=== PATIENT | female | born 1955 | race Caucasian/White ===

== ENCOUNTER 2019-10-06 16:45 | Inpatient (IN) ==
--- OUTSIDE RECORDS SUMMARY | 2019-10-06 16:47 | External Medical Summary | Continuity of Care Document ---
:1955 Author Name Oneil Castillo, Provider Address Unavailable Unavailable , Care Team Providers Name Role Phone Unavailable Unavailable Unavailable SALOMON JOHNSON Unavailable Unavailable Unavailable Unavailable Unavailable Problems Interstitial lung disease (515) (J84.9) Abnormal CT lung screening (793.19) (R91.8) Multiple pulmonary nodules (793.19) (R91.8) Kidney lesion (593.9) (N28.9) Allergies and Adverse Reactions Bactrim TABS (Allergy) Chantix TABS (Allergy) hydrochlorothiazide (Allergy) Percocet TABS (Allergy) Bee sting (Allergy) Medications amLODIPine Besylate 5 MG Oral Tablet; TAKE 1 TABLET DAILY. , M.D. Refills: 0 Ascorbic Acid 500 MG Oral Tablet; TAKE 1 TABLET DAILY. , M.D . Refills: 0 Atorvastatin Calcium 40 MG Oral Tablet; TAKE 1 TABLET AT BED TIME. , M.D. Refills: 0 buPROPion HCl ER (XL) 150 MG Oral Tablet Extended Release 24 Hour; TAKE 1 TABLET DAILY. , M.D. Refills: 0 Vitamin D3 50 MCG (2000 UT) Oral Tablet; Take 1 tablet daily , M.D. Refills: 0 Plavix 75 MG Oral Tablet; TAKE 1 TABLET DAILY. , M.D. Refills: 0 EpiPen 2-Vinnie 0.3 MG/0.3ML CLARE , M.D. Refills: 0 Hydroxychloroquine Sulfate 200 MG Oral Tablet; TAKE 1 TABLET DAILY. , M.D. Refills: 0 Lisinopril 20 MG Oral Tablet; TAKE 1 TABLET DAILY. , M.D. Refills: 0 Gaviscon CHEW , M.D. Refills: 0 Meloxicam 15 MG Oral Tablet; TAKE 1 TABLET DAILY. , M.D. Refills: 0 Metoprolol Succinate ER 25 MG Oral Table t Extended Release 24 Hour; Take 1 tablet twice daily , M.D. Refills: 0 Pantoprazole Sodium 40 MG Oral Tablet Delayed Release; TAKE 1 TABLET DAILY. , M.D. Refills: 0 traMADol HCl ER 100 MG Oral Tablet Exten ded Release 24 Hour; TAKE 1 TABLET DAILY. , M.D. Refills: 0 Zolpidem Tartrate ER 12.5 MG Oral Tablet Extended Release; TAKE 1 TABLET AT BEDTIME. , M.D. Refills: 0 Procedures Procedures not documented Immunizations Immunizations not documented Social History - Smoking Status Smokes tobacco daily Plan of Treatment Planned Observations Planned Goals not documented Results No Known Results Results not documented
--- OUTSIDE RECORDS SUMMARY | 2019-10-06 16:47 | External Medical Summary | Continuity of Care Document ---
[...] Percocet TABS (Allergy) Bee sting (Allergy) Medications Ascorbic Acid 500 MG Oral Tablet; TAKE [...] 0 Gaviscon CHEW , M.D. Refills: 0 amLODIPine Besylate 5 MG Oral Tablet; TAKE 1 TABLET DAILY. , M.D. Refills: 0 Zolpidem Tartrate ER 12.5 MG Oral Tablet Extended Release; TAKE 1 TABLET AT BEDTIME. , M.D. Refills: 0 traMADol HCl ER 100 MG Oral Tablet Exten ded Release 24 Hour; TAKE 1 TABLET DAILY. , M.D. Refills: 0 Pantoprazole Sodium 40 MG Oral Tablet Delayed Release; TAKE 1 TABLET DAILY. , M.D. Refills: 0 Metoprolol Succinate ER 25 MG Oral Table t Extended Release 24 Hour; Take 1 tablet twice daily , M.D. Refills: 0 Meloxicam 15 MG Oral Tablet; TAKE 1 TABLET DAILY. , M.D. Refills: 0 Procedures Procedures not documented Immunizations Immunizations not documented Social History - Smoking Status Smokes tobacco daily Plan of Treatment Planned Observations Planned Goals not documented Results No Known Results Results not documented
[2019-10-06 17:32] LABS: Basophils # (auto) 0.01 K/uL (0-0.2); Basophils % (auto) 0.1 %; Hematocrit (blood only) 39.6 % (37-47); Hemoglobin 13.3 g/dL (12.0-16.0); Immature Granulocytes # (auto) 0.01 K/uL (0.00-0.02); Immature Granulocytes % (auto) 0.1 %; Lymphocytes # (auto) 3.55 K/uL (1.2-3.4); Lymphocytes % (auto) 38.6 %; Mean Corpuscular Hemoglobin 28.9 pg (25-34); Mean Corpuscular Hgb Conc 33.6 g/dL (32-36); Mean Corpuscular Volume 85.9 fL (80-100); Mean Platelet Volume 11.4 fL (7.4-10.4); Monocytes # (auto) 0.87 K/uL (0.11-0.59); Monocytes % (auto) 9.5 %; Neutrophils # (auto) 4.76 K/uL (1.4-6.5); Neutrophils % (auto) 51.7 %; Platelet Count 266 K/uL (130-400); RDW Coefficient of Variation 13.3 % (11.5-14.5); Red Blood Count 4.61 M/uL (4.2-5.4)
--- NOTE | 2019-10-06 17:36 | Emergency Department Note ---
History of Present Illness General Chief complaint: Referred by Doctor Stated complaint: AFIB Time Seen by Provider: 10/06/19 17:07 Source: patient and family (Spouse who is at the bedside) Mode of arrival: ambulatory Limitations: no limitations History of Present Illness Maximum Pain Intensity: 7 This patient comes in after sent over from the senior data scientist after having significant pauses up to 10 seconds on an outpatient ZIO outpatient monitor. She is on Eliquis which they plan on holding tonight so they can do a pacemaker tomorrow. She is asymptomatic active at present with exception of mild headache which she thinks is from stress. She has no chest pain or shortness of breath lightheadedness or dizziness at present. She has some chronic lower extremity edema for the last 6 months. She had no known exposure to covert and specifically denies fever chills cough or flulike symptoms or achiness. Home Medications Home Medications Medication Instructions Recorded Confirmed Type amlodipine 10 mg PO QPM 10/06/19 10/06/19 History apixaban [Eliquis] 5 mg PO BID 10/06/19 10/06/19 History ascorbic acid (vitamin C) [Vitamin 500 mg PO BID 10/06/19 10/06/19 History C] atorvastatin 40 mg PO HS 10/06/19 10/06/19 History bupropion HCl 150 mg PO BID 10/06/19 10/06/19 History buspirone 10 mg PO BID 10/06/19 10/06/19 History cholecalciferol (vitamin D3) 50 mcg PO QPM 10/06/19 10/06/19 History [Vitamin D3] clopidogrel 75 mg PO DAILY 10/06/19 10/06/19 History famotidine 40 mg PO HS 10/06/19 10/06/19 History furosemide 60 mg PO Q OTHER DAY 10/06/19 10/06/19 History gabapentin 600 mg PO HS 10/06/19 10/06/19 History hydroxychloroquine 200 mg PO BID 10/06/19 10/06/19 History lisinopril 10 mg PO DAILY 10/06/19 10/06/19 History magnesium oxide 400 mg PO DAILY 10/06/19 10/06/19 History metoprolol tartrate 25 mg PO BID 10/06/19 10/06/19 History pantoprazole 40 mg PO DAILY 10/06/19 10/06/19 History Allergies Allergy/AdvReac Type Severity Reaction Status Date / Time bee venom protein (honey bee) Allergy Severe Verified 10/06/19 18:08 acetaminophen [From Percocet] Allergy Intermediate hives Verified 10/06/19 18:08 oxycodone [From Percocet] Allergy Intermediate hives Verified 10/06/19 18:08 sulfamethoxazole Allergy Intermediate Hives Verified 10/06/19 18:08 [From Bactrim] trimethoprim [From Bactrim] Allergy Intermediate Hives Verified 10/06/19 18:08 varenicline [From Chantix] Allergy Intermediate Hives Verified 10/06/19 18:08 Past Med/Surg History Medical History (Updated 10/06/19 @ 20:30 by Sarabjit Taylor MD) GERD (gastroesophageal reflux disease) HLD (hyperlipidemia) HTN (hypertension) Peripheral vascular disease Rheumatoid arthritis Tachy-bandar syndrome (Acute) Surgical History (Updated 10/06/19 @ 19:27 by Shirin Keen PA-C) History of amputation of toe R 5th toe History of angioplasty of peripheral vessel bilateral iliac stent revascularization 2009 History of appendectomy History of cholecystectomy History of hysterectomy History of left heart catheterization Nonobstructive coronary disease by cardiac catheterization 2006, 2015 History of lumpectomy of left breast History of repair of rotator cuff History of total right knee replacement (TKR) Family History Sister Breast cancer Social History (Updated 10/06/19 @ 19:28 by Shirin Keen PA-C) Preferred Language: Uzbek Communication Ability: Effective Sales Technician Home Theater Required: No Beliefs That Will Affect Care: None marital status: Current Living Situation: Spouse and Family Other Information That Helps Us Care for You: No Feels Safe at Home: Yes Safety Concerns: Feels Safe At This Time Smoking Status: Former smoker Tobacco Type: cigarettes ; Years Smoked: 40 ; Tobacco Cessation Education Requested by Patient: No Hx Alcohol Use: Yes Alcohol type: beer Alcohol Intake Frequency: Holidays/Sp ecial Occasions Hx Substance Use: No Immunizations: Past medical history: A. fib on anticoagulation with Eliquis She has history of peripheral vascular disease with stenting She has renal insufficiency She tells me she has had a cardiac cath and has not had any cardiac lesions that she knows of Social history: She is and lives with her near [place]. She is followed by Dr. Romero Review of Systems A total of 10 systems reviewed and were otherwise negative Physical Exam Vital Signs Vital Signs - 24 hr 10/06/19 16:57 10/06/19 17:07 10/06/19 17:09 Temperature 36.7 C Temperature Source Oral Pulse Rate 89 84 104 H Pulse Rate from SpO2 Sensor 90 104 H Pulse Rhythm Respiratory Rate 20 20 17 Respiratory Effort / Characteristics Non-Labored Respiratory Depth Normal Blood Pressure 92/50 L 155/80 H Blood Pressure Mean 64 106 Pulse Oximetry 93 97 98 Oxygen Delivery Method Room Air Sepsis Recent Fever Within 48 Hours No Sepsis New/Unexplained Change in Mental Status No Sepsis Action Taken by Nursing No Action Required 10/06/19 17:15 10/06/19 17:30 10/06/19 17:45 Temperature Temperature Source Pulse Rate 93 H 115 H 118 H Pulse Rate from SpO2 Sensor Pulse Rhythm Irregular Respiratory Rate 14 22 21 Respiratory Effort / Characteristics Respiratory Depth Blood Pressure Blood Pressure Mean Pulse Oximetry Oxygen Delivery Method Room Air Sepsis Recent Fever Within 48 Hours Sepsis New/Unexplained Change in Mental Status Sepsis Action Taken by Nursing General: Well developed well nourished [id number] middle-age female who appears in no acute distress, breathing comfortably on room air. Normal speech HEENT: Normal cephalic atraumatic. Pupils are equal round and reactive to light. Extraocular movements are intact. Oropharynx is pink with moist mucous membranes. No swelling of the mouth lips or tongue. Neck: Supple with a midline trachea. No meningeal signs or stiffness, no JVD or bruits. No Stridor. Chest: Clear to auscultation bilaterally. No wheezes or rhonchi. No increased work of breathing. Heart: Irregularly irregular and rhythm without murmurs or gallops. A. fib seen on the monitor Abdomen: Soft nontender, nondistended without rebound guarding or rigidity. Extremities: No cyanosis clubbing or edema. No calf tenderness or assymetry Spine/Back. Non tender to palpation. No CVA tenderness Skin: Good turgor without rashes. Neurologic exam: Cranial nerves two through 12 are intact. Motor and sensation are intact and symmetrical throughout. Course Administered Medications Sodium Chloride (Nss 1000ml) 1,000 mls @ 80 mls/hr IV .[id number] [facility] Stop: 10/07/19 06:59 Last Admin: 10/06/19 18:40 Dose: 80 mls/hr Documented by: [id number] Medical Decision Making Differential Diagnosis Cardiac electrical problems, heart block, acute coronary syndrome, electrolyte or metabolic abnormality, infection, anemia Medical Records Attestation: I reviewed the patient's medical records. Home Medications Current Medication List: was personally reviewed by me Laboratory Data Attestation: I reviewed the patient's lab results. Result diagrams: 10/06/19 17:15 10/06/19 17:15 Lab Results 10/06/19 10/06/19 10/06/19 Range/Units 17:15 17:15 17:15 WBC 9.20 (4.8-10.8) K/uL RBC 4.61 (4.2-5.4) M/uL Hgb 13.3 (12.0-16.0) g/dL Hct 39.6 (37-47) % MCV 85.9 (80-100) fL MCH 28.9 (25-34) pg MCHC 33.6 (32-36) g/dL RDW Std Deviation 42.0 (36.4-46.3) fL RDW Coeff of Milli 13.3 (11.5-14.5) % Plt Count 266 (130-400) K/uL MPV 11.4 H (7.4-10.4) fL Immature Gran % (Auto) 0.1 % Neut % (Auto) 51.7 % Lymph % (Auto) 38.6 % [place] % (Auto) 9.5 % Eos % (Auto) 0.0 % Baso % (Auto) 0.1 % Neut # (Auto) 4.76 (1.4-6.5) K/uL Lymph # (Auto) 3.55 H (1.2-3.4) K/uL [place] # (Auto) 0.87 H (0.11-0.59) K/uL Eos # (Auto) 0.00 (0-0.5) K/uL Baso # (Auto) 0.01 (0-0.2) K/uL Immature Gran # (Auto) 0.01 (0.00-0.02) K/uL PT 11.5 (9.0-12.0) Seconds INR 1.1 (0.9-1.1) APTT 30.5 (21.0-31.0) Seconds PTT Ratio 1.1 Sodium 138 (136-145) mmol/L Potassium 4.2 (3.5-5.1) mmol/L Chloride 106 (98-107) mmol/L Carbon Dioxide 26 (21-32) mmol/L Anion Gap 6.0 (3-11) BUN 32 H (7-18) mg/dl Creatinine 2.30 H (0.6-1.2) mg/dl Est Cr Clr Drug Dosing 22.5 ml/min Est GFR ( Amer) 25.0 Est GFR (Non-Af Amer) 21.6 BUN/Creatinine Ratio 13.7 (10-20) Glucose 84 (70-99) mg/dl Calcium 9.0 (8.5-10.1) mg/dl Total Bilirubin 0.5 (0.2-1) mg/dl AST 16 (15-37) U/L ALT 23 (12-78) U/L Alkaline Phosphatase 145 H (45-117) U/L Troponin I < 0.015 (0-0.045) ng/ml Total Protein 7.8 (6.4-8.2) gm/dl Albumin 4.0 (3.4-5.0) gm/dl Globulin 3.8 (2.5-4.0) gm/dl Albumin/Globulin Ratio 1.0 (0.9-2) Lipase 132 (73-393) U/L Imaging Data Attestation: I personally reviewed and interpreted this imaging study as follows: My Impression: Chest x-ray: No acute infiltrate, failure, pneumothorax seen upon my interpretation Radiologist's Impression: XR chest 1V portable CLINICAL HISTORY: Atypical chest pain COMPARISON STUDY: CT scan performed 2016 FINDINGS: The heart is the upper limits of normal in size. There is no failure. There is no focal pulmonary consolidation. There are no pleural effusions.[Sligh t prominence of basilar markings likely relates to technical factors and atelectatic change. IMPRESSION: No active disease in the chest. ECG Data Attestation: I personally reviewed and interpreted this ECG as follows: Indication: + syncope and + weakness Rate (beats per minute): 108 Rhythm: + atrial flutter ECG Intervals/blocks: + Normal QRS ECG [place]: + Normal ECG ST segments: + Nonspecific ST abnormalities ECG Findings: + LVH Comparison ECG Date: no prior available Blood Pressure Blood Pressure Findings: Normal blood pressure Blood Pressure Disposition: did not require urgent referral MDM Narrative This patient comes in referred by her senior data scientist. She has been having pauses up to 10 seconds. She is stable at present this is been going on for quite some time. She was placed on a dry wall installations mechanic and B12. IV access established. Her EKG shows A. fib with slight increased heart rate. She had multiple blood testing obtained. Dr. Des Esquivel, the senior data scientist, will be taking care of her did see her in the ER. The patient does not appear to be in congestive heart failure. Troponin is normal. She has no significant electrolyte or metabolic abnormalities with exception of some renal insufficiency with a creatinine of 2.3. She has not think she has liver gallbladder pancreas disease. Given her sinus pauses and need for a pacemaker she will be admitted/observed. I have [facility] [place] her in the [place] for these measures. Continuous cardiac monitoring: An order was placed for a continuous cardiac monitoring due to her history of sinus pauses. My exam/interpretation, she was noted to be in A. fib with a rate of 89. Impression & Plan Tachy-bandar syndrome, Persistent atrial fibrillation, CKD (chronic kidney disease) stage 4, GFR 15-29 ml/min, Sinus pause, senior care (current) use of anticoagulants Discharge Plan Visit Data *Final* Discharge Date/Time: 10/06/19 19:17 Chief Complaint: Referred by Doctor Stated Complaint: AFIB ED Provider: Sarabjit Taylor Discharge Problem: Tachy-bandar syndrome, Persistent atrial fibrillation, CKD (chronic kidney disease) stage 4, GFR 15-29 ml/min, Sinus pause, terminologist (current) use of anticoagulants Patient Disposition: Admitted As Inpatient Discharge Instructions Interventions: ED Discharge Assessment Last Done: 10/06/19 19:17
--- NOTE | 2019-10-06 17:42 | XRay Report ---
XR chest 1V portable CLINICAL HISTORY: Atypical chest pain COMPARISON STUDY: CT scan performed 2016 FINDINGS: The heart is the upper limits of normal in size. There is no failure. There is no focal pul monary consolidation. There are no pleural effusions.[Slight prominence of basilar markings likely re lates to technical factors and atelectatic change. IMPRESSION: No active disease in the chest. ACT 112: Negative or not required by law. Electronically signed by: Gorge Blair M.D. 10/06/2019 5:41 PM
[2019-10-06 17:44] LABS: INR 1.1 (0.9-1.1); Partial Thromboplastin Ratio 1.1; Partial Thromboplastin Time 30.5 Seconds (21.0-31.0); Prothrombin Time 11.5 Seconds (9.0-12.0)
[2019-10-06 17:48] LABS: Alanine Aminotransferase 23 U/L (12-78); Aspartate Aminotransferase 16 U/L (15-37); BUN Creatinine Ratio 13.7 (10-20); Blood Urea Nitrogen 32 mg/dl (7-18); Carbon Dioxide 26 mmol/L (21-32); Chloride 106 mmol/L (98-107); Creatinine Clr Calc Pharmacy 22.5 ml/min; Est GFR (Non-African American) 21.6; Glucose 84 mg/dl (70-99); Lipase 132 U/L (73-393); Potassium 4.2 mmol/L (3.5-5.1); Sodium 138 mmol/L (136-145)
[2019-10-06 17:53] LABS: Alkaline Phosphatase 145 U/L (45-117); Bilirubin,Total 0.5 mg/dl (0.2-1); Globulin 3.8 gm/dl (2.5-4.0); Total Protein 7.8 gm/dl (6.4-8.2); Troponin I < 0.015 ng/ml (0-0.045)
--- NOTE | 2019-10-06 17:57 | Cardiology Consultation ---
Date of Consultation October 06, 2019 Assessment & Plan (1) Tachy-bandar syndrome: (2) Persistent atrial fibrillation: (3) HTN (hypertension): (4) Peripheral vascular disease: 63-year-old female with complex history as outlined above with recent symptoms of intermittent lightheadedness and dizziness. Event monitor demonstrated significant pauses with tachybradycardia syndrome superimposed on persistent atrial fibrillation. Patient is referred in anticipation of pacemaker insertion. Maintain telemetry Echocardiogram ordered for a.m. Eliquis, metoprolol on hold History of Present Illness Reason for Consultation: Tachybradycardia syndrome with profound pauses on event monitor Requesting Physician: Doctor Blas History of Present Illness Patient is a 63-year-old female with ongoing issues include 1. Paroxysmal now more persistent atrial fibrillation/flutter diagnosed initially 2016 2. Nonobstructive coronary disease by cardiac catheterization 2006, 2015 3. Peripheral artery disease on chronic antiplatelet therapy with clopidogrel with past bilateral iliac stent revascularization 2009 4. Hypertension 5. CKD stage IIIIV 6. Hyperlipidemia on therapy 7. Right renal mass Patient is referred to the ER after abnormal ZIO Patch monitor. History as above with initial paroxysmal atrial fibrillation with recent more persistent complaints. She is noted symptoms of palpitations as well as intermittent lightheadedness resulting in monitor placement study demonstrated frequent pauses longest greater than 10 seconds. She is referred in anticipation of pacemaker insertion She denies fevers chills or cough. Notes no complete syncope. Notes only palpitations but no sustained tachyarrhythmias. No chest pains or worsening shortness of breath. No bleeding difficulties. On chronic anticoagulation. Appetite is generally good. No sleep disruption Allergies Allergy/AdvReac Type Severity Reaction Status Date / Time bee venom protein (honey bee) Allergy Severe Verified 10/06/19 18:08 acetaminophen [From Percocet] Allergy Intermediate hives Verified 10/06/19 18:08 oxycodone [From Percocet] Allergy Intermediate hives Verified 10/06/19 18:08 sulfamethoxazole Allergy Intermediate Hives Verified 10/06/19 18:08 [From Bactrim] trimethoprim [From Bactrim] Allergy Intermediate Hives Verified 10/06/19 18:08 varenicline [From Chantix] Allergy Intermediate Hives Verified 10/06/19 18:08 Home Medications Home Medications Medication Instructions Recorded Confirmed Type amlodipine 10 mg PO QPM 10/06/19 10/06/19 History apixaban [Eliquis] 5 mg PO BID 10/06/19 10/06/19 History ascorbic acid (vitamin C) [Vitamin 500 mg PO BID 10/06/19 10/06/19 History C] atorvastatin 40 mg PO HS 10/06/19 10/06/19 History bupropion HCl 150 mg PO BID 10/06/19 10/06/19 History buspirone 10 mg PO BID 10/06/19 10/06/19 History cholecalciferol (vitamin D3) 50 mcg PO QPM 10/06/19 10/06/19 History [Vitamin D3] clopidogrel 75 mg PO DAILY 10/06/19 10/06/19 History famotidine 40 mg PO HS 10/06/19 10/06/19 History furosemide 60 mg PO Q OTHER DAY 10/06/19 10/06/19 History gabapentin 600 mg PO HS 10/06/19 10/06/19 History hydroxychloroquine 200 mg PO BID 10/06/19 10/06/19 History lisinopril 10 mg PO DAILY 10/06/19 10/06/19 History magnesium oxide 400 mg PO DAILY 10/06/19 10/06/19 History metoprolol tartrate 25 mg PO BID 10/06/19 10/06/19 History pantoprazole 40 mg PO DAILY 10/06/19 10/06/19 History Patient History Medical History (Updated 10/06/19 @ 20:30 by Sarabjit Taylor MD) GERD (gastroesophageal reflux disease) HLD (hyperlipidemia) HTN (hypertension) Peripheral vascular disease Rheumatoid arthritis Tachy-bandar syndrome (Acute) Surgical History (Updated 10/06/19 @ 19:27 by Shirin Keen PA-C) History of amputation of toe R 5th toe History of angioplasty of peripheral vessel bilateral iliac stent revascularization 2009 History of appendectomy History of cholecystectomy History of hysterectomy History of left heart catheterization Nonobstructive coronary disease by cardiac catheterization 2006, 2015 History of lumpectomy of left breast History of repair of rotator cuff History of total right knee replacement (TKR) Family History Sister Breast cancer Social History (Updated 10/06/19 @ 19:28 by Shirin Keen PA-C) Preferred Language: Mauritanian Communication Ability: Effective Direct Care Supervisor Required: No Beliefs That Will Affect Care: None marital status: Current Living Situation: Spouse and Family Other Information That Helps Us Care for You: No Feels Safe at Home: Yes Safety Concerns: Feels Safe At This Time Smoking Status: Former smoker Tobacco Type: cigarettes ; Years Smoked: 40 ; Tobacco Cessation Education Requested by Patient: No Hx Alcohol Use: Yes Alcohol type: beer Alcohol Intake Frequency: Holidays/Special Occasions Hx Substance Use: No Physical Exam Constitutional: WD/WN, vitals as above Eyes: PERRL, conjunctivae normal, anicteric sclerae ENMT: external ear and nose normal, oropharynx normal Neck: trachea midline, no thyromegaly Respiratory: Auscultation: lungs clear to auscultation bilaterally Cardiovascular: Rate/Rhythm: + tachycardic and + irregularly irregular Heart Sounds: normal S1 and normal S2; no gallop and no murmur Palpation: normal PMI Vessels: normal carotid upstroke and radial pulses present; no JVD and no carotid bruit Extremities: no edema Gastrointestinal (Abdomen): normal bowel sounds, soft, nontender, no hepatosplenomegaly Musculoskeletal: no cyanosis or clubbing, extremities motor strength 5/5 Skin: no rashes, warm and dry Neurologic: PERRL, EOMI, accommodation nl, no face palsy, no dysarthria Psychiatric: A+Ox3, euthymic affect Results & Data ([facility]) Vital Signs (Past 12 Hours) Vital Signs Temp Pulse Resp BP Pulse Ox 10/06/19 17:45 118 H 21 10/06/19 17:30 115 H 22 10/06/19 17:15 93 H 14 10/06/19 17:09 104 H 17 98 10/06/19 17:07 84 20 155/80 H 97 10/06/19 16:57 36.7 C 89 20 92/50 L 93 Laboratory Results Laboratory Results - last 24 hr 10/06/19 10/06/19 10/06/19 17:15 17:15 17:15 WBC 9.20 RBC 4.61 Hgb 13.3 Hct 39.6 MCV 85.9 MCH 28.9 MCHC 33.6 RDW Std Deviation 42.0 RDW Coeff of Milli 13.3 Plt Count 266 MPV 11.4 H Immature Gran % (Auto) 0.1 Neut % (Auto) 51.7 Lymph % (Auto) 38.6 [place] % (Auto) 9.5 Eos % (Auto) 0.0 Baso % (Auto) 0.1 Neut # (Auto) 4.76 Lymph # (Auto) 3.55 H [place] # (Auto) 0.87 H Eos # (Auto) 0.00 Baso # (Auto) 0.01 Immature Gran # (Auto) 0.01 PT 11.5 INR 1.1 APTT 30.5 PTT Ratio 1.1 Sodium 138 Potassium 4.2 Chloride 106 Carbon Dioxide 26 Anion Gap 6.0 BUN 32 H Creatinine 2.30 H Est Cr Clr Drug Dosing 22.5 Est GFR ( Amer) 25.0 Est GFR (Non-Af Amer) 21.6 BUN/Creatinine Ratio 13.7 Glucose 84 Calcium 9.0 Total Bilirubin 0.5 AST 16 ALT 23 Alkaline Phosphatase 145 H Troponin I < 0.015 Total Protein 7.8 Albumin 4.0 Globulin 3.8 Albumin/Globulin Ratio 1.0 Lipase 132
[2019-10-06] MEDS ORDERED: SODIUM CHLORIDE 0.9% 1000ML 1,000 ML IV SCH (18:30)
--- NOTE | 2019-10-06 19:32 | History & Physical Report ---
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 admit to PCU plan for pacemaker implantation in a.m. Cardiology consulted -Dr. Esquivel appreciate input Hold Eliquis, metoprolol per Dr. Esquivel Gentle IVF 80 cc/h x 1 L Monitor on telemetry, pacer pads at bedside N.p.o. after midnight (3) HTN (hypertension): blood pressure on lower side in ED hold amlodipine, lisinopril, metoprolol, lasix reassess in a.m. need to resume (4) CKD (chronic kidney disease) stage 4, GFR 15-29 ml/min: Patient with history of renal dysfunction Baseline creatinine 2.2 ( renal function 10/2017 cr 1.2 has be slowly increasing since) BUN/creatinine 32 and 2.30 today Patient had renal ultrasound 05/2019 which revealed 2 right-sided renal lesions Per patient she has evaluation with at [facility] [place] in regards to CKD and the lesions (this appointment is Urology Dr. Delvalle 10/11) This will need close follow-up, would recommend establishing with nephrology Monitor renal function (5) Peripheral vascular disease: Patient with history of angioplasty to bilateral iliac arteries with stent placed 2001 On long-term Plavix therapy Hold Plavix in a.m. for pacemaker procedure, resume post procedure Continue statin (6) GERD (gastroesophageal reflux disease): Continue pantoprazole and Pepcid (7) HLD (hyperlipidemia): Continue statin (8) Rheumatoid arthritis: Continue hydroxychloroquine (9) DVT prophylaxis: Eliquis on hold for pacemaker procedure Disposition: Admit to PCU Follow-up: PCP Dr. Romero upon discharge Patient was seen and examined in collaboration with Dr. Qureshi, please see addendum History of Present Illness Chief Complaint: Referred by Dr. Blas for pacer placement. 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 Patient has history of persistent atrial fibrillation anticoagulated on Eliquis. She recently underwent cardiac rhythm monitoring due to worsening symptomatology, light headedness and dizziness. She was found on ZIO patch to have 66 pause episodes with one being 10.3 seconds. Due to concern for tachybrady syndrome she was referred to ED for pacemaker placement. Currently patient feels well although she does overall feel anxious and has chest tightness. He explains the chest tightness as "this is what I get when I get anxious." She denies any fever, chills, sweats, current lightheadedness or dizziness, syncope, chest pain, shortness of breath, palpitations, nausea, vomiting, diarrhea, change in her bowel or urinary habits. She is been compliant with her medications. She last took Eliquis first thing this morning. She has noticed mild increase in lower extremity swelling. She is on Lasix 60 mg daily which she took yesterday. She denies any family history of cardiac arrhythmias. Overall good appetite. Does admit to history of worsening renal function and states that she has known lesions on her kidney which she is to have evaluated next week by nephrology at [facility]. In ED patient remained hemodynamically stable although mildly tachycardic and systolic BPs in the 90s. CBC generally unremarkable, CMP revealed elevated BUN 32 creatinine 2.30, troponin WNL. Chest x-ray with cardiomegaly but otherwise no acute abnormality. Allergies Allergy/AdvReac Type Severity Reaction Status Date / Time bee venom protein (honey bee) Allergy Severe Verified 10/06/19 18:08 acetaminophen [From Percocet] Allergy Intermediate hives Verified 10/06/19 18:08 oxycodone [From Percocet] Allergy Intermediate hives Verified 10/06/19 18:08 sulfamethoxazole Allergy Intermediate Hives Verified 10/06/19 18:08 [From Bactrim] trimethoprim [From Bactrim] Allergy Intermediate Hives Verified 10/06/19 18:08 varenicline [From Chantix] Allergy Intermediate Hives Verified 10/06/19 18:08 Home Medications Home Medications Medication Instructions Recorded Confirmed Type amlodipine 10 mg PO QPM 10/06/19 10/06/19 History apixaban [Eliquis] 5 mg PO BID 10/06/19 10/06/19 History ascorbic acid (vitamin C) [Vitamin 500 mg PO BID 10/06/19 10/06/19 History C] atorvastatin 40 mg PO HS 10/06/19 10/06/19 History bupropion HCl 150 mg PO BID 10/06/19 10/06/19 History buspirone 10 mg PO BID 10/06/19 10/06/19 History cholecalciferol (vitamin D3) 50 mcg PO QPM 10/06/19 10/06/19 History [Vitamin D3] clopidogrel 75 mg PO DAILY 10/06/19 10/06/19 History famotidine 40 mg PO HS 10/06/19 10/06/19 History furosemide 60 mg PO Q OTHER DAY 10/06/19 10/06/19 History gabapentin 600 mg PO HS 10/06/19 10/06/19 History hydroxychloroquine 200 mg PO BID 10/06/19 10/06/19 History lisinopril 10 mg PO DAILY 10/06/19 10/06/19 History magnesium oxide 400 mg PO DAILY 10/06/19 10/06/19 History metoprolol tartrate 25 mg PO BID 10/06/19 10/06/19 History pantoprazole 40 mg PO DAILY 10/06/19 10/06/19 History Past Med/Surg History Medical History (Updated 10/06/19 @ 20:30 by Sarabjit Taylor MD) GERD (gastroesophageal reflux disease) HLD (hyperlipidemia) HTN (hypertension) Peripheral vascular disease Rheumatoid arthritis Tachy-bandar syndrome (Acute) Surgical History (Updated 10/06/19 @ 19:27 by Shirin Keen PA-C) History of amputation of toe R 5th toe History of angioplasty of peripheral vessel bilateral iliac stent revascularization 2009 History of appendectomy History of cholecystectomy History of hysterectomy History of left heart catheterization Nonobstructive coronary disease by cardiac catheterization 2006, 2015 History of lumpectomy of left breast History of repair of rotator cuff History of total right knee replacement (TKR) Family History Sister Breast cancer Social History (Updated 07/16/20 @ 19:28 by Shirin Keen PA-C) Preferred Language: Setswana Communication Ability: Effective Superintendent Operating Required: No Beliefs That Will Affect Care: None marital status: Current Living Situation: Spouse and Family Other Information That Helps Us Care for You: No Feels Safe at Home: Yes Safety Concerns: Feels Safe At This Time Smoking Status: Former smoker Tobacco Type: cigarettes ; Years Smoked: 40 ; Tobacco Cessation Education Requested by Patient: No Hx Alcohol Use: Yes Alcohol type: beer Alcohol Intake Frequency: Holidays/Spec ial Occasions Hx Substance Use: No Review of Systems Review of Systems: All systems reviewed & are unremarkable except as noted in HPI & below Physical Exam Physical Exam: Constitutional: WD/WN, F, vitals as above, NAD, sitting up in bed, pleasant, conversing easily Head: Normocephalic, Atraumatic Eyes: PERRL, conjunctivae normal, anicteric sclerae ENMT: external ear and nose normal, oropharynx normal absent dentition Neck: trachea midline, no thyromegaly normal visual inspection Respiratory: normal respiratory effort, lungs clear to auscultation, no wheeze, rales, rhonchi. Normal insp/exp effort, no accessory muscle use Cardiovascular: Irregular, irregular, no murmur, bilateral +1 lower pretibial extremity edema, no erythema, negative Homans sign, bilateral pedal pulses +2 Vessels: no JVD or carotid bruit Chest: normal inspection of chest Abdomen: normal bowel sounds, soft, nontender, no hepatosplenomegaly Musculoskeletal: no cyanosis or clubbing, extremities motor strength 5/5 Skin: no rashes, warm and dry normal turgor Neurologic: PERRL, EOMI, accommodation nl, no face palsy, no dysarthria CN's II-XI intact bilaterally and moves all extremities Psychiatric: A+Ox3, euthymic affect Lymphatic: no cervical or axillary lymphadenopathy : deferred Results & Data Results & Data ([facility]) Vital Signs (Past 12 Hours) Vital Signs Temp Pulse Pulse Resp BP BP Pulse Ox 10/06/19 19:01 103 H 24 114/74 98 10/06/19 19:00 107 H 17 96 10/06/19 18:46 112 H 21 98 10/06/19 18:45 109 H 14 127/85 98 10/06/19 18:43 113 H 20 153/99 H 97 10/06/19 18:31 112 H 22 153/99 H 98 10/06/19 18:30 101 H 21 97 10/06/19 18:17 110 H 19 10/06/19 18:16 89 19 94/68 L 10/06/19 18:15 103 H 21 10/06/19 18:01 103 H 22 104/74 10/06/19 18:00 102 H 17 10/06/19 17:45 118 H 21 10/06/19 17:30 115 H 22 10/06/19 17:15 93 H 14 10/06/19 17:09 104 H 17 98 10/06/19 17:07 84 20 155/80 H 97 10/06/19 16:57 36.7 C 89 20 92/50 L 93 Laboratory Results Short CBC 10/06/19 10/06/19 Range/Units 17:15 17:15 WBC 9.20 (4.8-10.8) K/uL Hgb 13.3 (12.0-16.0) g/dL Hct 39.6 (37-47) % Plt Count 266 (130-400) K/uL Creatinine 2.30 H (0.6-1.2) mg/dl BMP 10/06/19 17:15 Sodium 138 Potassium 4.2 Chloride 106 Carbon Dioxide 26 BUN 32 H Creatinine 2.30 H Glucose 84 Calcium 9.0 Cardiac Enzymes 10/06/19 Range/Units 17:15 Troponin I < 0.015 (0-0.045) ng/ml Liver Function 10/06/19 Range/Units 17:15 Total Bilirubin 0.5 (0.2-1) mg/dl AST 16 (15-37) U/L ALT 23 (12-78) U/L Alkaline Phosphatase 145 H (45-117) U/L Albumin 4.0 (3.4-5.0) gm/dl Diagnostic Findings Zio Patch: 66 pause episodes were found the longest being 10.3 seconds, patient symptomatic CXR: IMPRESSION: No active disease in the chest. Medications Administered Sodium Chloride (Nss 1000ml) 1,000 mls @ 80 mls/hr IV .[id number] JULIO Stop: 10/07/19 06:59 Last Admin: 10/06/19 18:40 Dose: 80 mls/hr Documented by: [id number] ECG Rate (beats per minute): 108 Rhythm: atrial flutter Findings: + prolonged QT (qtc 466ms) Code Status & VTE Plan Code Status Full Code VTE Prophylaxis Plan VTE Prophylaxis will be ordered: Yes Supervising Physician Co-Signing Physician Notes Patient is a 63-year-old female with history of atrial fibrillation, peripheral artery disease, hypertension and other medical problems presents with history of dizziness. Patient had been evaluated by her EP and was noted to have pauses on her ZIO patch. She states having chest tightness/shortness of breath/dizziness which are episodic. Patient is planned for pacemaker placement tomorrow. Please review HPI for complete details of presentation. On exam patient is obese, no apparent distress, normocephalic atraumatic, lungs are clear to auscultation, irregularly irregular rhythm, no murmur, abdomen soft, nontender, normal bowel sounds, grossly no focal neurologic deficits, trace pedal edema noted. Patient is admitted for management of tachybradycardia syndrome. Will avoid AV jayla blocking agents. Will hold Ashutosh martinezlavinia for pacemaker placement tomorrow. We will keep her n.p.o. after midnight. Cardiology consulted. Monitor renal function. I personally reviewed the record. Patient is interviewed and examined at bedside. Patient's care is coordinated with Shirin Keen PA-C. Please refer to the documentation above for details of patient's presentation and for discussion of other issues.
[2019-10-06] MEDS ORDERED: ACETAMINOPHEN 325 MG TAB PO PRN (19:39)
[2019-10-06] MEDS ORDERED: ONDANSETRON INJ 2 MG/ML 2 ML VIAL IV PRN (19:39)
[2019-10-06] MEDS ORDERED: POLYETHYLENE (MIRALAX) 17 GM PACK PO PRN (19:39)
[2019-10-06] MEDS ORDERED: PNEUMOCOCCAL POLYSACCHARIDES 25 MCG/0.5 ML VIAL/SYR IM ONE (20:07)
[2019-10-06] MEDS ORDERED: PNEUMOCOCCAL ADMINISTRATION CHARGE ONE (20:07)
[2019-10-06] MEDS: GABAPENTIN 600 MG TAB PO SCH (21:25)
[2019-10-06] MEDS: ATORVASTATIN 40 MG TAB PO SCH (21:25)
[2019-10-06] MEDS: BuPROPion SR 150 MG TABCR PO SCH (21:25)
[2019-10-06] MEDS: CHOLECALCIFEROL 1,000 UNITS 25 MCG TAB PO SCH (21:25)
[2019-10-06] MEDS: FAMOTIDINE 40 MG TABLET PO SCH (21:25)
[2019-10-06] MEDS: HYDROXYCHLOROQUINE SULFATE 200 MG TAB PO SCH (21:52)
[2019-10-07 06:29] LABS: Hematocrit (blood only) 37.6 % (37-47); Hemoglobin 12.8 g/dL (12.0-16.0); Mean Corpuscular Hemoglobin 29.3 pg (25-34); Mean Platelet Volume 11.3 fL (7.4-10.4); Platelet Count 234 K/uL (130-400); RDW Coefficient of Variation 13.5 % (11.5-14.5); RDW Standard Deviation 42.4 fL (36.4-46.3); Red Blood Count 4.37 M/uL (4.2-5.4)
[2019-10-07 07:09] LABS: BUN Creatinine Ratio 14.4 (10-20); Calcium 8.7 mg/dl (8.5-10.1); Creatinine Clr Calc Pharmacy 27.6 ml/min; Est GFR (African American) 32.1; Est GFR (Non-African American) 27.7; Magnesium 1.7 mg/dl (1.8-2.4); Potassium 4.1 mmol/L (3.5-5.1)
[2019-10-07] MEDS ORDERED: CLOPIDOGREL BISULFATE 75 MG TAB PO SCH (09:00)
[2019-10-07] MEDS: HYDROXYCHLOROQUINE SULFATE 200 MG TAB PO SCH ×2 (09:01→21:10)
[2019-10-07] MEDS: BuPROPion SR 150 MG TABCR PO SCH ×2 (09:01→20:52)
[2019-10-07] MEDS: PANTOprazole 40 MG TAB PO SCH (09:57)
--- NOTE | 2019-10-07 11:29 | Electrocardiogram Report ---
Test Reason : Blood Pressure : / mmHG Vent. Rate : 063 BPM Atrial Rate : 063 BPM P-R Int : 216 ms QRS Dur : 078 ms QT Int : 426 ms P-R-T Axes : 007 014 055 degrees QTc Int : 435 ms Sinus rhythm with 1st degree A-V block Otherwise normal ECG When compared with ECG of 06-OCT-2019 17:10, (unconfirmed) Sinus rhythm has replaced Atrial flutter Vent. rate has decreased BY 45 BPM Confirmed by Cali Gracia ([id number]) on 10/07/2019 11:28:52 AM Referred By: Amanda Blas Confirmed By:Ilia Gracia
[2019-10-07] MEDS ORDERED: LIDOCAINE HCL 1% 20 ML VIAL ONE (11:51)
[2019-10-07] MEDS ORDERED: BUPIVACAINE 0.5 % 5 MG/1 ML PF 10ML VIAL ONE (11:51)
[2019-10-07] MEDS ORDERED: BACITRACIN INJ 50,000 UNIT VIAL ONE (11:52)
--- NOTE | 2019-10-07 12:49 | Electrocardiogram Report ---
Test Reason : Blood Pressure : / mmHG Vent. Rate : 108 BPM Atrial Rate : 324 BPM P-R Int : 000 ms QRS Dur : 080 ms QT Int : 348 ms P-R-T Axes : 000 001 067 degrees QTc Int : 466 ms Atrial fibrillation Left ventricular hypertrophy with repolarization abnormality Abnormal ECG No previous ECGs available Confirmed by Cali Gracia ([id number]) on 10/07/2019 12:49:28 PM Referred By: Amanda Blas Confirmed By:Ilia Gracia
--- NOTE | 2019-10-07 12:52 | Cardiology Progress Note ---
Date of Service October 07, 2019 Assessment & Plan (1) Tachy-bandar syndrome: (2) Persistent atrial fibrillation: (3) HTN (hypertension): (4) CKD (chronic kidney disease) stage 4, GFR 15-29 ml/min: (5) Peripheral vascular disease: 63-year-old female with complex history as outlined above with recent symptoms of intermittent lightheadedness and dizziness. Event monitor demonstrated significant pauses with tachybradycardia syndrome superimposed on persistent atrial fibrillation. Patient is referred in anticipation of pacemaker insertion. Maintain telemetry Patient for pacemaker today. Eliquis and metoprolol on hold. Did spontaneously revert to sinus rhythm last evening Subjective Patient seen and examined, chart, medications, telemetry reviewed. No arrhythmias overnight feels well this morning Echocardiogram with preserved LV systolic function Has converted back to sinus rhythm overnight Physical Exam Constitutional: WD/WN, vitals as above Eyes: PERRL, conjunctivae normal, anicteric sclerae ENMT: external ear and nose normal, oropharynx normal Neck: trachea midline, no thyromegaly Respiratory: Auscultation: lungs clear to auscultation bilaterally Cardiovascular: Rate/Rhythm: + tachycardic and + irregularly irregular Heart Sounds: normal S1 and normal S2; no gallop and no murmur Palpation: normal PMI Vessels: normal carotid upstroke and radial pulses present; no JVD and no carotid bruit Extremities: no edema Gastrointestinal (Abdomen): normal bowel sounds, soft, nontender, no hepatosplenomegaly Musculoskeletal: no cyanosis or clubbing, extremities motor strength 5/5 Skin: no rashes, warm and dry Neurologic: PERRL, EOMI, accommodation nl, no face palsy, no dysarthria Psychiatric: A+Ox3, euthymic affect Results & Data Vital Signs (Past 12 Hours) Vital Signs Temp Pulse Pulse Resp BP Pulse Ox 10/07/19 11:35 36.5 C 64 16 134/71 99 10/07/19 08:05 36.6 C 64 18 142/68 H 97 10/07/19 07:10 69 10/07/19 04:40 36.6 C 68 20 122/80 96 Laboratory Results Laboratory Results - last 24 hr 10/06/19 10/06/19 10/06/19 17:15 17:15 17:15 WBC 9.20 RBC 4.61 Hgb 13.3 Hct 39.6 MCV 85.9 MCH 28.9 MCHC 33.6 RDW Std Deviation 42.0 RDW Coeff of Milli 13.3 Plt Count 266 MPV 11.4 H Immature Gran % (Auto) 0.1 Neut % (Auto) 51.7 Lymph % (Auto) 38.6 [place] % (Auto) 9.5 Eos % (Auto) 0.0 Baso % (Auto) 0.1 Neut # (Auto) 4.76 Lymph # (Auto) 3.55 H [place] # (Auto) 0.87 H Eos # (Auto) 0.00 Baso # (Auto) 0.01 Immature Gran # (Auto) 0.01 PT 11.5 INR 1.1 APTT 30.5 PTT Ratio 1.1 Sodium 138 Potassium 4.2 Chloride 106 Carbon Dioxide 26 Anion Gap 6.0 BUN 32 H Creatinine 2.30 H Est Cr Clr Drug Dosing 22.5 Est GFR ( Amer) 25.0 Est GFR (Non-Af Amer) 21.6 BUN/Creatinine Ratio 13.7 Glucose 84 Calcium 9.0 Magnesium Total Bilirubin 0.5 AST 16 ALT 23 Alkaline Phosphatase 145 H Troponin I < 0.015 Total Protein 7.8 Albumin 4.0 Globulin 3.8 Albumin/Globulin Ratio 1.0 Lipase 132 COVID-19 PCR SARS-CoV-2 RNA (RT-PCR) 10/06/19 10/06/19 10/07/19 18:33 18:33 05:34 WBC 6.60 RBC 4.37 Hgb 12.8 Hct 37.6 MCV 86.0 MCH 29.3 MCHC 34.0 RDW Std Deviation 42.4 RDW Coeff of Milli 13.5 Plt Count 234 MPV 11.3 H Immature Gran % (Auto) Neut % (Auto) Lymph % (Auto) [place] % (Auto) Eos % (Auto) Baso % (Auto) Neut # (Auto) Lymph # (Auto) [place] # (Auto) Eos # (Auto) Baso # (Auto) Immature Gran # (Auto) PT INR APTT PTT Ratio Sodium Potassium Chloride Carbon Dioxide Anion Gap BUN Creatinine Est Cr Clr Drug Dosing Est GFR ( Amer) Est GFR (Non-Af Amer) BUN/Creatinine Ratio Glucose Calcium Magnesium Total Bilirubin AST ALT Alkaline Phosphatase Troponin I Total Protein Albumin Globulin Albumin/Globulin Ratio Lipase COVID-19 PCR NEGATIVE SARS-CoV-2 RNA (RT-PCR) Cancelled 10/07/19 05:34 WBC RBC Hgb Hct MCV MCH MCHC RDW Std Deviation RDW Coeff of Milli Plt Count MPV Immature Gran % (Auto) Neut % (Auto) Lymph % (Auto) [place] % (Auto) Eos % (Auto) Baso % (Auto) Neut # (Auto) Lymph # (Auto) [place] # (Auto) Eos # (Auto) Baso # (Auto) Immature Gran # (Auto) PT INR APTT PTT Ratio Sodium 145 D Potassium 4.1 Chloride 113 H Carbon Dioxide 26 Anion Gap 6.0 BUN 27 H Creatinine 1.87 H D Est Cr Clr Drug Dosing 27.6 Est GFR ( Amer) 32.1 Est GFR (Non-Af Amer) 27.7 BUN/Creatinine Ratio 14.4 Glucose 78 Calcium 8.7 Magnesium 1.7 L Total Bilirubin AST ALT Alkaline Phosphatase Troponin I Total Protein Albumin Globulin Albumin/Globulin Ratio Lipase COVID-19 PCR SARS-CoV-2 RNA (RT-PCR)
[2019-10-07] MEDS ORDERED: fentaNYL citrate 100 MCG/2 ML VIAL ONE ×2 (14:28→15:37)
[2019-10-07] MEDS ORDERED: CEFAZOLIN 250 MG/ML 1 GM VIAL ONE (14:28)
[2019-10-07] MEDS ORDERED: MIDAZOLAM HCL 5 MG/ML 1 ML VIAL ONE (14:28)
--- NOTE | 2019-10-07 14:43 | History & Physical Bridge Note ---
Date of Service October 07, 2019 History & Physical Bridge Note I have examined the patient, reviewed the History & Physical and in the interval since the performance of the History & Physical I have noted the following changes of clinical significance: pt with sinus arrest and syncope; for a ppm consents signed
--- NOTE | 2019-10-07 14:44 | Pre Anesthesia Assessment ---
Date of Service October 07, 2019 Pre Sedation Assessment Vital Signs Temp Pulse Pulse Resp BP BP BP 10/07/19 14:41 71 17 129/74 10/07/19 11:35 36.5 C 64 16 134/71 10/07/19 08:05 36.6 C 64 18 142/68 H 10/07/19 07:10 69 10/07/19 04:40 36.6 C 68 20 122/80 10/07/19 00:10 36.8 C 64 18 130/67 10/06/19 19:35 36.7 C 107 H 16 121/85 10/06/19 19:01 103 H 24 114/74 10/06/19 19:00 107 H 17 10/06/19 18:46 112 H 21 10/06/19 18:45 109 H 14 127/85 10/06/19 18:43 113 H 20 153/99 H 10/06/19 18:31 112 H 22 153/99 H 10/06/19 18:30 101 H 21 10/06/19 18:17 110 H 19 10/06/19 18:16 89 19 94/68 L 10/06/19 18:15 103 H 21 10/06/19 18:01 103 H 22 104/74 10/06/19 18:00 102 H 17 10/06/19 17:45 118 H 21 10/06/19 17:30 115 H 22 10/06/19 17:15 93 H 14 10/06/19 17:09 104 H 17 10/06/19 17:07 84 20 155/80 H 10/06/19 16:57 36.7 C 89 20 92/50 L Pulse Ox 10/07/19 14:41 96 10/07/19 11:35 99 10/07/19 08:05 97 10/07/19 07:10 10/07/19 04:40 96 10/07/19 00:10 99 10/06/19 19:35 97 10/06/19 19:01 98 10/06/19 19:00 96 10/06/19 18:46 98 10/06/19 18:45 98 10/06/19 18:43 97 10/06/19 18:31 98 10/06/19 18:30 97 10/06/19 18:17 10/06/19 18:16 10/06/19 18:15 07/16/20 18:01 10/06/19 18:00 10/06/19 17:45 10/06/19 17:30 10/06/19 17:15 10/06/19 17:09 98 10/06/19 17:07 97 10/06/19 16:57 93 Cardiovascular RRR, no murmur, no edema Respiratory normal respiratory effort, lungs clear to auscultation Pre-Sedation Airway Assessment Smoking Status: Former smoker Hx Sleep Apnea: No Short, Thick Neck: No Oral Cavity: + WNL Mallampati Class: III ASA: ASA3 NPO Status Date of Last Intake of Fluids: 10/06/19 Time of Last Intake of Fluids: 15:00 Date of Last Intake of Solid Food: 10/06/19 Time of Last Intake of Solid Foods: 15:00 Procedure Planning Contraindications for Sedation: none Current Medications Reviewed: Yes Notes The planned sedation has been discussed with the patient. Informed Consent was obtained. I have identified the patient, determined the appropriateness of sedation and have assessed the patient immediately prior to the procedure. All medicine(s) and interventions are by my order.
[2019-10-07] MEDS ORDERED: MIDAZOLAM HCL 1 MG/ML 2ML VIAL ONE (15:37)
[2019-10-07] MEDS ORDERED: NURSING DECISION MEDICATION ONE (15:55)
--- NOTE | 2019-10-07 15:55 | Post Anesthesia Assessment ---
Date of Service October 07, 2019 Post Sedation Assessment Vital Signs Temp Pulse Pulse Resp BP BP BP 10/07/19 14:41 71 17 129/74 10/07/19 11:35 36.5 C 64 16 134/71 10/07/19 08:05 36.6 C 64 18 142/68 H 10/07/19 07:10 69 10/07/19 04:40 36.6 C 68 20 122/80 10/07/19 00:10 36.8 C 64 18 130/67 10/06/19 19:35 36.7 C 107 H 16 121/85 10/06/19 19:01 103 H 24 114/74 10/06/19 19:00 107 H 17 10/06/19 18:46 112 H 21 10/06/19 18:45 109 H 14 127/85 10/06/19 18:43 113 H 20 153/99 H 10/06/19 18:31 112 H 22 153/99 H 10/06/19 18:30 101 H 21 10/06/19 18:17 110 H 19 10/06/19 18:16 89 19 94/68 L 10/06/19 18:15 103 H 21 10/06/19 18:01 103 H 22 104/74 10/06/19 18:00 102 H 17 10/06/19 17:45 118 H 21 10/06/19 17:30 115 H 22 10/06/19 17:15 93 H 14 10/06/19 17:09 104 H 17 10/06/19 17:07 84 20 155/80 H 10/06/19 16:57 36.7 C 89 20 92/50 L Pulse Ox 10/07/19 14:41 96 10/07/19 11:35 99 10/07/19 08:05 97 10/07/19 07:10 10/07/19 04:40 96 10/07/19 00:10 99 10/06/19 19:35 97 10/06/19 19:01 98 10/06/19 19:00 96 10/06/19 18:46 98 10/06/19 18:45 98 10/06/19 18:43 97 10/06/19 18:31 98 10/06/19 18:30 97 10/06/19 18:17 10/06/19 18:16 10/06/19 18:15 07/16/20 18:01 10/06/19 18:00 10/06/19 17:45 10/06/19 17:30 10/06/19 17:15 10/06/19 17:09 98 10/06/19 17:07 97 10/06/19 16:57 93 Recovery Score Activity: Moves 4 extremities Respiration: Deep Breath/Cough Circulation: +/-20% PreAnes Value Consciousness: Fully Awake Oxygen Saturation: > 92% On Room Air Discharge Sedation Level of Care: Fast Track Phase II Post Sedation Plan On clinical assessment, the patient appears to have tolerated the sedation without complications. Patient is recovering as anticipated. Patient will continue to be monitored by nursing and may be discharged when sedation discharge criteria are met per below protocol. Upon Completions of procedure up to 15 minutes continue every 5 minute vital signs and the P.A.R. score; then discharge to a Phase I or Fast Track to Phase II per the following guidelines: * Discharge Patient to appropriate Phase II area if PAR is 8 or greater or return to pre- procedure baseline. The post - procedure orders will be as directed. * If PAR score is less than 8 or not return to pre-procedure baseline then patient will follow Phase I monitoring till PAR is reached for Phase II. The Phase I may be done in procedure room or may call to secure a Phase I area. * If naloxone or flumazenil are used for reversal, hold in Phase I for continued monitoring from when last reversal dose was given for a minimum of 60 minutes or longer pending the nurse and/or physician discretion of patient condition before discharge to Phase II. Please call the Sedation Physician to re-evaluate and complete post-note for discharge to Phase II area. Do NOT discharge from procedure sedation or Phase 1 until post- sedation evaluation note is complete by procedure /sedation MD Sedation Discharge Instructions to be given to the patient at discharge to home.
--- NOTE | 2019-10-07 15:55 | Operative Report ---
Post Operative Report Pre & Post Diagnosis sinus arrest Operation Date: 10/07/19 14:00 <No data on this case meets the specified criteria> I identified the patient and participated in the time-out.: Yes Procedure Operation Date: 10/07/19 14:00 Actual Procedures p Pacer with A/V Leads (Dual) - Amanda Blas DO s Venogram, Unilateral - Amanda Blas DO Surgeon Amanda Blas, Control And Recovery Combat Rescue none Estimated Blood Loss 15 Findings Consistent with Post-Op Diagnosis Specimens none Description of Procedure see official report I attest to the content of the Intraoperative Record and any orders documented therein. Any exceptions are noted below.
[2019-10-07] MEDS: ACETAMINOPHEN 325 MG TAB PO PRN ×2 (19:00→23:36)
--- NOTE | 2019-10-07 19:18 | Hospitalist Progress Note ---
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 Sling requested from nurse. Pt tolerating food and pain manageable with APAP. (2) Persistent atrial fibrillation: Eliquis, Metoprolol (3) HTN (hypertension): Cont amlodipine, lisinopril and metoprolol with lasix on hold for now. BP at goal. Expected to fluctuate with varying levels of pain post-procedure. (4) CKD (chronic kidney disease) stage 4, GFR 15-29 ml/min: Currently at her baseline creat of around 2.2. Needs to establish care with Nephrology as outpatient. Small dose of contrast during procedure, but also received some IVF. Stay hydrated. Monitor for MATEO. Recent renal US revealing two right renal lesions May 2019 with Urology follow-up scheduled on 10/11. (5) Peripheral vascular disease: h/o stent in bilateral iliacs 2001, on Plavix which has been held elaine- procedure. Cont Lipitor. (6) GERD (gastroesophageal reflux disease): Continue pantoprazole and Pepcid per home regimen. (7) Rheumatoid arthritis: Continue hydroxychloroquine per home regimen. (8) DVT prophylaxis: Eliquis on hold for pacemaker procedure/SCDs/ambulation as tolerated. Full Dispo-PCU, poss home in am per Dr. Blas clearance. Emilie Adhikari DO [facility] Hospitalist Admission and Anticipated Discharge Date Admission Date: October 06, 2019 Subjective 63 yo F here for symptomatic bradycardia with pauses on recent outpatient cardiac monitoring s/p pacemaker and doing well reports some soreness in the chest but otherwise feels fine converted to sinus from afib on her way from the ER to the floor overnight and no significant pauses or bandar seen on telemetry review Review of Systems Review of Systems: All systems reviewed & are unremarkable except as noted in Subjective Physical Exam Physical Exam: CONSTITUTIONAL: obese, vitals as above, generally well- appearing EYES: normal conjunctivae, no scleral icterus ENT: external ear and nose normal, MMM RESPIRATORY: clear to auscultation bilaterally, no crackles, rales or wheezes, normal respiratory effort CARDIOVASCULAR: regular rate and rhythm, S1 and 2 heard without murmurs, gallops or rubs, no JVD, no peripheral edema CHEST: inspection of the chest revealed a recent pacemaker insertion without significant swelling or erythema/ecchymosis around the site GASTROINTESTINAL: soft, nontender, nondistended MUSCULOSKELETAL: head is normocephalic and atraumatic, strength intact throughout, no gross focal deficits. SKIN: warm and dry, left anterior chest wall incision as above. NEUROLOGIC: No facial palsy, no dysarthria. CN 2-12 grossly intact, normal cognition, normal speech, no tremor, no gross focal deficits PSYCHIATRIC: alert cooperative and oriented to person, place and time. Results & Data Results & Data ([facility]) Vital Signs (Past 12 Hours) Vital Signs Temp Pulse Resp BP BP Pulse Ox 10/07/19 18:40 35.7 C L 72 16 105/83 96 10/07/19 18:10 76 16 130/67 96 10/07/19 17:40 60 16 117/54 L 94 10/07/19 17:10 36.5 C 69 16 95 10/07/19 16:40 71 16 124/65 97 10/07/19 16:16 60 16 95/56 L 97 10/07/19 16:01 63 16 134/69 97 10/07/19 14:41 71 17 129/74 96 10/07/19 11:35 36.5 C 64 16 134/71 99 10/07/19 08:05 36.6 C 64 18 142/68 H 97 Laboratory Results Short CBC 10/07/19 Range/Units 05:34 WBC 6.60 (4.8-10.8) K/uL Hgb 12.8 (12.0-16.0) g/dL Hct 37.6 (37-47) % Plt Count 234 (130-400) K/uL BMP 10/07/19 05:34 Sodium 145 D Potassium 4.1 Chloride 113 H Carbon Dioxide 26 BUN 27 H Creatinine 1.87 H D Glucose 78 Calcium 8.7 Medications Administered Current Inpatient Medications Acetaminophen (Tylenol) 650 mg PO Q4H PRN PRN Reason: Pain Stop: 11/06/19 15:54 Amlodipine Besylate (Norvasc) 10 mg PO QPM JULIO Stop: 11/06/19 20:59 Apixaban (Eliquis) 5 mg PO BID JULIO Stop: 11/07/19 08:59 Atorvastatin Calcium (Lipitor) 40 mg PO HS JULIO Stop: 08/15/20 20:59 Last Admin: 10/06/19 21:25 Dose: 40 mg Documented by: Bupropion HCl (Wellbutrin-Sr) 150 mg PO BID JULIO Stop: 11/05/19 20:59 Last Admin: 10/07/19 09:01 Dose: 150 mg Documented by: Clopidogrel Bisulfate (Plavix) 75 mg PO DAILY JULIO Stop: 11/06/19 08:59 Last Admin: 10/07/19 09:35 Dose: Not Given Documented by: Famotidine (Pepcid) 40 mg PO HS JULIO Stop: 11/05/19 20:59 Last Admin: 10/06/19 21:25 Dose: 40 mg Documented by: Gabapentin (Neurontin) 600 mg PO HS JULIO Stop: 11/05/19 20:59 Last Admin: 10/06/19 21:25 Dose: 600 mg Documented by: Hydroxychloroquine Sulfate (Plaquenil) 200 mg PO BID JULIO Stop: 11/05/19 20:59 Last Admin: 10/07/19 09:01 Dose: 200 mg Documented by: Lisinopril (Zestril) 10 mg PO DAILY JULIO Stop: 11/07/19 08:59 Magnesium Oxide (Mag-Ox) 400 mg PO DAILY JULIO Stop: 11/07/19 08:59 Metoprolol Tartrate (Lopressor) 25 mg PO BID [facility] Stop: 11/06/19 20:59 Ondansetron HCl (Zofran) 4 mg IV Q6H PRN PRN Reason: Nausea Stop: 11/05/19 19:38 Pantoprazole Sodium (Protonix) 40 mg PO DAILY JULIO Stop: 11/06/19 08:59 Last Admin: 10/07/19 09:57 Dose: 40 mg Documented by: Polyethylene Glycol (Miralax Powder Packet) 17 gm PO DAILY PRN PRN Reason: Constipation Stop: 11/05/19 19:38 Vitamin D (Vitamin D3) 2,000 units PO QPM JULIO Stop: 11/05/19 20:59 Last Admin: 10/06/19 21:25 Dose: 2,000 units Documented by:
[2019-10-07] MEDS: METOPROLOL TARTRATE 25 MG TAB PO SCH (20:47)
[2019-10-07] MEDS: ATORVASTATIN 40 MG TAB PO SCH (20:48)
[2019-10-07] MEDS: GABAPENTIN 600 MG TAB PO SCH (20:49)
[2019-10-07] MEDS: CHOLECALCIFEROL 1,000 UNITS 25 MCG TAB PO SCH (20:50)
[2019-10-07] MEDS: FAMOTIDINE 40 MG TABLET PO SCH (20:50)
[2019-10-07] MEDS ORDERED: AMLODIPINE BESYLATE 5 MG TAB PO SCH (21:00)
[2019-10-08 05:35] LABS: Hematocrit (blood only) 39.8 % (37-47); Hemoglobin 13.3 g/dL (12.0-16.0); Mean Corpuscular Hgb Conc 33.4 g/dL (32-36); Mean Corpuscular Volume 86.9 fL (80-100); Mean Platelet Volume 11.8 fL (7.4-10.4); Platelet Count 242 K/uL (130-400); RDW Coefficient of Variation 13.5 % (11.5-14.5); RDW Standard Deviation 43.1 fL (36.4-46.3); Red Blood Count 4.58 M/uL (4.2-5.4); White Blood Count 7.27 K/uL (4.8-10.8)
[2019-10-08] MEDS: ACETAMINOPHEN 325 MG TAB PO PRN (05:36)
[2019-10-08 06:15] LABS: BUN Creatinine Ratio 16.4 (10-20); Calcium 9.1 mg/dl (8.5-10.1); Creatinine Clr Calc Pharmacy 28.9 ml/min; Est GFR (African American) 34.1; Est GFR (Non-African American) 29.4; Potassium 3.9 mmol/L (3.5-5.1)
[2019-10-08] MEDS: HYDROXYCHLOROQUINE SULFATE 200 MG TAB PO SCH (08:05)
[2019-10-08] MEDS: METOPROLOL TARTRATE 25 MG TAB PO SCH (08:06)
[2019-10-08] MEDS: PANTOprazole 40 MG TAB PO SCH (08:07)
[2019-10-08] MEDS: BuPROPion SR 150 MG TABCR PO SCH (08:07)
[2019-10-08] MEDS ORDERED: MAGNESIUM OXIDE 400 MG TAB PO SCH (09:00)
[2019-10-08] MEDS ORDERED: lisinopriL 10 MG TAB PO SCH (09:00)
[2019-10-08] MEDS ORDERED: APIXABAN 5 MG TABLET PO SCH (09:00)
[2019-10-08] MEDS ORDERED: METOPROLOL TARTRATE 25 MG TAB PO STA (09:41)
--- NOTE | 2019-10-08 09:48 | XRay Report ---
XR chest 2V PA/lateral CLINICAL HISTORY: post ppm COMPARISON STUDY: Chest radiograph October 06, 2019. FINDINGS: There is no pneumothorax following placement of a dual lead left subclavian pacemaker. Lead tips project over the right atrial appendage and right ventricle. There is mild cardiomegaly without evidence for pulmonary edema. There is no consolidation. There is no pleural effusion. Cholecystecto my clips are noted. IMPRESSION: No pneumothorax placement of a dual-lead left subclavian pacemaker. ACT 112: Negative or not required by law. Electronically signed by: Dionisio Garcia M.D. 10/08/2019 9:47 AM
--- NOTE | 2019-10-08 12:04 | Discharge Summary ---
Date of Service October 08, 2019 Admission HPI Per Admitting Provider This is a 63-year-old female who has significant past medical history of persistent atrial fibrillation, HTN, HLD, peripheral arterial disease on long- term Plavix therapy with history of bilateral iliac stents 2001, CKD stage IV, rheumatoid arthritis, GERD who presents to ED at the referral of branch employment coordinator due to abnormal ZIO patch. Patient has history of persistent atrial fibrillation anticoagulated on Eliquis. She recently underwent cardiac rhythm monitoring due to worsening symptomatology, lightheadedness and dizziness. She was found on ZIO patch to have 66 pause episodes with one being 10.3 seconds. Due to concern for tachybrady syndrome she was referred to ED for pacemaker placement. Currently patient feels well although she does overall feel anxious and has chest tightness. He explains the chest tightness as "this is what I get when I get anxious." She denies any fever, chills, sweats, current lightheadedness or dizziness, syncope, chest pain, shortness of breath, palpitations, nausea, vomiting, diarrhea, change in her bowel or urinary habits. She is been compliant with her medications. She last took Eliquis first thing this morning. She has noticed mild increase in lower extremity swelling. She is on Lasix 60 mg daily which she took yesterday. She denies any family history of cardiac arrhythmias. Overall good appetite. Does admit to history of worsening renal function and states that she has known lesions on her kidney which she is to have evaluated next week by nephrology at [place]. In ED patient remained hemodynamically stable although mildly tachycardic and sy stolic BPs in the 90s. CBC generally unremarkable, CMP revealed elevated BUN 32 creatinine 2.30, troponin WNL. Chest x-ray with cardiomegaly but otherwise no acute abnormality. Admission Exam Per Admitting Provider Constitutional: WD/WN, F, vitals as above, NAD, sitting up in bed, pleasant, conversing easily Head: Normocephalic, Atraumatic Eyes: PERRL, conjunctivae normal, anicteric sclerae ENMT: external ear and nose normal, oropharynx normal absent dentition Neck: trachea midline, no thyromegaly normal visual inspection Respiratory: normal respiratory effort, lungs clear to auscultation, no wheeze, rales, rhonchi. Normal insp/exp effort, no accessory muscle use Cardiovascular: Irregular, irregular, no murmur, bilateral +1 lower pretibial extremity edema, no erythema, negative Homans sign, bilateral pedal pulses +2 Vessels: no JVD or carotid bruit Chest: normal inspection of chest Abdomen: normal bowel sounds, soft, nontender, no hepatosplenomegaly Musculoskeletal: no cyanosis or clubbing, extremities motor strength 5/5 Skin: no rashes, warm and dry normal turgor Neurologic: PERRL, EOMI, accommodation nl, no face palsy, no dysarthria CN's II-XI intact bilaterally and moves all extremities Psychiatric: A+Ox3, euthymic affect Lymphatic: no cervical or axillary lymphadenopathy : deferred Principal Diagnosis Tachy-bandar syndrome: Persistent atrial fibrillation Discharge Exam CONSTITUTIONAL: obese, vitals as above, generally well-appearing EYES: normal conjunctivae, no scleral icterus ENT: external ear and nose normal, MMM RESPIRATORY: clear to auscultation bilaterally, no crackles, rales or wheezes, normal respiratory effort CARDIOVASCULAR: regular rate and rhythm, S1 and 2 heard without murmurs, gallops or rubs, no JVD, no peripheral edema CHEST: inspection of the chest revealed a recent pacemaker insertion without significant swelling or erythema/ecchymosis around the site GASTROINTESTINAL: soft, nontender, nondistended MUSCULOSKELETAL: head is normocephalic and atraumatic, strength intact throughout, no gross focal deficits. SKIN: warm and dry, left anterior chest wall incision as above. NEUROLOGIC: No facial palsy, no dysarthria. CN 2-12 grossly intact, normal cognition, normal speech, no tremor, no gross focal deficits PSYCHIATRIC: alert cooperative and oriented to person, place and time. Discharge Data Allergies Allergy/AdvReac Type Severity Reaction Status Date / Time bee venom protein (honey bee) Allergy Severe Verified 10/06/19 18:08 acetaminophen [From Percocet] Allergy Intermediate hives Verified 10/06/19 18:08 oxycodone [From Percocet] Allergy Intermediate hives Verified 10/06/19 18:08 sulfamethoxazole Allergy Intermediate Hives Verified 10/06/19 18:08 [From Bactrim] trimethoprim [From Bactrim] Allergy Intermediate Hives Verified 10/06/19 18:08 varenicline [From Chantix] Allergy Intermediate Hives Verified 10/06/19 18:08 Consultations 10/06/19 17:55 ED Decision to Admit Stat 10/06/19 17:58 Consult Cardiology Routine Procedures Performed Operation Date: 10/07/19 14:00 Actual Procedures p Pacer with A/V Leads (Dual) - Amanda Blas DO s Venogram, Unilateral - Amanda Blas DO Ordered Studies 10/07/19 13:15 CL Cath Imgs for PACS use only Routine Hospital Course (1) Tachy-bandar syndrome: (2) Persistent atrial fibrillation: (3) HTN (hypertension): (4) CKD (chronic kidney disease) stage 4, GFR 15-29 ml/min: (5) Peripheral vascular disease: This is a 63-year-old female who presented to the cardiology clinic recently with symptoms of intermittent lightheadedness and dizziness. Outpatient ZIO monitor demonstrated significant pauses with tachybradycardia superimposed on persistent atrial fibrillation. She was admitted to the hospitalist service for anticipated pacemaker insertion which took place on 09/20. An echocardiogram was performed revealing moderate concentric left ventricular hypertrophy, EF of 55 to 60%, grade 2 diastolic dysfunction. Telemetry revealed sinus rhythm initially during the admission and then she flipped into atrial flutter postoperatively with an elevated heart rate. As a result her metoprolol was slightly increased by the inspector aluminum boat prior to discharge. She otherwise recovered well with minimal soreness on her chest post procedure and was stable for discharge on 10/07 with a close follow-up with cardiology recommended. Total Time Total Time Spent Total Time Spent (In Minutes): 60 Total Time Includes: Examination of the Patient, Discharge Planning, Medication Reconciliation and Communication With Other Providers Discharge Plan Discharge Items Patient Disposition: Home - Self-Care Reason For Visit: SINUS PAUSE Discharge Diagnosis: Tachy-bandar syndrome: Persistent atrial fibrillation Activity: As commented below Activity Comment: do not raise the left elbow over the left shoulder for 1 month Lifting: No more than 10 pounds Lifting Comment: do not lift more than 10 pounds with the left arm for 2 weeks Bathing: Keep incision dry Bathing Comment: keep dressing on and dry until wound check next week Sexual Activity: After two weeks Driving/Machine Use: Resume 1 day after discharge Non-emergency contact: Global Coordinator Call non-emergency contact if: you have any medication questions, your symptoms worsen, your pain is not controlled, your pain is worsening, you have a fever, your wound has increased redness, your wound has increased drainage and your wound pain has increased Follow-up/Referrals: Emmanuel Romero [Primary Care Provider] - Diet: Heart Healthy Addtl Attending Provider Instructions: Device and wound check next week at [facility] Try to wear sports bra or surgical bra for the next 2 weeks If you notice any swelling at the device site call [facility] immediately It was a pleasure taking care of you! Please call if you have any questions or problems. You can reach a [facility] hospitalist on duty at [facility] 24 hours a day by calling [phone]. Take care of yourself. Emilie Adhikari DO [facility] Hospitalist Pending Studies at Discharge: No Stand-Alone Forms: My [facility], Smoking Cessation Medications and DC Order Prescriptions: New metoprolol tartrate 50 mg tablet 50 mg PO BID Qty: 60 RF: 1 Continued furosemide 40 mg Tablet 60 mg PO Q OTHER DAY RF: 0 atorvastatin 40 mg Tablet 40 mg PO HS RF: 0 bupropion HCl 150 mg Tablet Sustained-Release 12 Hr 150 mg PO BID RF: 0 gabapentin 600 mg Tablet 600 mg PO HS RF: 0 famotidine 40 mg Tablet 40 mg PO HS RF: 0 ascorbic acid (vitamin C) [Vitamin C] 500 mg Tablet 500 mg PO BID RF: 0 amlodipine 10 mg Tablet 10 mg PO QPM RF: 0 pantoprazole 40 mg Tablet,Delayed Release (Dr/Ec) 40 mg PO DAILY RF: 0 lisinopril 10 mg Tablet 10 mg PO DAILY RF: 0 hydroxychloroquine 200 mg Tablet 200 mg PO BID RF: 0 cholecalciferol (vitamin D3) [Vitamin D3] 50 mcg (2,000 unit) Tablet 50 mcg PO QPM RF: 0 magnesium oxide 400 mg magnesium Capsule 400 mg PO DAILY RF: 0 Eliquis 5 mg Tablet 5 mg PO BID RF: 0 clopidogrel 75 mg Tablet 75 mg PO DAILY RF: 0 buspirone 10 mg Tablet 10 mg PO BID RF: 0 Discontinued metoprolol tartrate 25 mg Tablet 25 mg PO BID RF: 0 Discharge Orders: Discharge Order (Routine); Ordered 10/08/19 Ordered By: Emilie Adhikari Admission Data Admit Date/Time: 10/06/19 17:58 Attending Provider: Emilie Adhikari Admit Provider: Rg Qureshi Primary Care Provider: Emmanuel Romero Other Providers: Des Esquivel ; Rg Qureshi Other Interventions: Discharge Summary Assessment (RN) Last Done: 10/08/19 11:35
--- NOTE | 2019-10-08 13:27 | Cardiology Progress Note ---
Date of Service October 08, 2019 Assessment & Plan (1) Tachy-bandar syndrome: (2) Persistent atrial fibrillation: (3) HTN (hypertension): (4) CKD (chronic kidney disease) stage 4, GFR 15-29 ml/min: (5) Peripheral vascular disease: 63-year-old female with complex history as outlined above with recent symptoms of intermittent lightheadedness and dizziness. Event monitor demonstrated significant pauses with tachybradycardia syndrome superimposed on persistent atrial fibrillation. Tolerated pacemaker placement well. Has gone back into atrial flutter with rapid ventricular response. Now the pacemaker is in place can increase baseline beta-blockade. We will increase metoprolol tartrate to 50 mg p.o. twice daily. Okay to resume previous doses of Eliquis and Plavix. My office will call to arrange follow-up with the device clinic and with Dr. Wan Kelly to d/c to home from cardiac standpoint Subjective Patient seen and examined, chart reviewed. States that she feels rather well. Lightheadedness and dizziness have resolved. Pocket site is a little sore but otherwise doing well. Anxious for discharge. Telemetry reviewed: Atrial fibrillation/flutter in the 100s. Review of Systems Review of Systems: All systems reviewed & are unremarkable except as noted in HPI & below Physical Exam Physical Exam: General: Awake, alert and oriented x 3. No acute distress. HEENT: Normocephalic, atraumatic. Pupils equal, round and reactive to light and accommodation. Extraocular muscles are intact. Anicteric sclera. Moist mucous membranes. Neck: No JVD. No bruit. Cardiovascular: irregularly irregular, unable to appreciate murmur, rub or gallop. Pulmonary: Clear to auscultation bilaterally. No rales, rhonchi, or wheezing. Abdomen: Bowel sounds x 4, soft. No rebound, guarding or tenderness. No organomegaly. Extremities: No clubbing, cyanosis or edema. +2 pedal pulses bilaterally. Skin: Warm and dry. Results & Data Vital Signs (Past 12 Hours) Vital Signs Temp Pulse Resp BP BP Pulse Ox 10/08/19 11:35 36.7 C 89 18 105/83 124/72 96 10/08/19 11:23 36.7 C 89 18 124/72 96 10/08/19 09:54 91 H 100/64 10/08/19 06:36 36.9 C 102 H 20 140/70 96 10/08/19 02:53 36.4 C L 101 H 21 128/76 96
[2019-10-08] MEDS ORDERED: HYDROXYCHLOROQUINE SULFATE 200 MG TAB PO SCH (21:00)
--- NOTE | 2019-10-09 07:51 | Electrocardiogram Report ---
Test Reason : Blood Pressure : / mmHG Vent. Rate : 101 BPM Atrial Rate : 303 BPM P-R Int : 000 ms QRS Dur : 074 ms QT Int : 296 ms P-R-T Axes : 000 -03 074 degrees QTc Int : 383 ms Atrial fibrillation with rapid ventricular response Minimal voltage criteria for LVH, may be normal variant Nonspecific ST abnormality Cannot rule out Inferior infarct Abnormal ECG When compared with ECG of 07-OCT-2019 06:49, Atrial fibrillation has replaced Sinus rhythm Vent. rate has increased BY 38 BPM Confirmed by Jose Son ([id number]) on 10/09/2019 7:51:42 AM Referred By: Amanda Blas Confirmed By:Jose Son
--- NOTE | 2019-10-19 09:56 | Operative Report (OR) ---
DATE OF OPERATION: 10/07/2019 PREOPERATIVE DIAGNOSES: Tachybrady syndrome, sinus arrest and intermittent complete heart block and syncope. POSTOPERATIVE DIAGNOSES: Tachybrady syndrome, sinus arrest and intermittent complete heart block and syncope. PROCEDURE: Dual chamber rate responsive permanent pacemaker with peripheral venogram under fluoroscopic guidance SURGEON: Amanda Blas DO. ASSISTANTS: None. ANESTHESIA: Monitored conscious sedation administered under my supervision by Jazmyn Scott. Start time 1455, end time 1553, a total of 6 mg of Versed, 125 mcg of fentanyl. INTRAVENOUS FLUIDS: 30 mL ANTIBIOTICS: 1 gram of Ancef. BLOOD LOSS: 10 mL of Optiview. URINE OUTPUT: Not applicable. SPECIMENS: None. FINDINGS: See below. DRAINS: None. BLOOD LOSS: 20 mL INDICATIONS: This is a 63-year-old female with past medical history for paroxysmal atrial fibrillation and atrial flutter diagnosed in 2016 on Eliquis and metoprolol, CHADS2-VASc score 2, coronary artery disease with nonobstructive disease by catheterization in 2015, peripheral arterial disease status post stents in 2009, hypertension, chronic kidney disease stage III-IV, osteoarthritis, gastroesophageal reflux disease. She had episodes of near syncope and was wearing a Zio patch that revealed sinus arrest and intermittent complete heart block with these near syncopal episodes with the evidence of tachybrady syndrome in addition to the high degree blocks. She was recommended inpatient hospitalization and then a pacemaker implant. CONSENT: Consent was obtained prior to the patient going into electrophysiology lab. The patient was informed of the risks, benefits and alternative procedure. Risks include but not limited to sudden cardiac , cardiac arrhythmias, cerebrovascular accident, myocardial infarction, injury to the blood vessels, chamber of the heart, lung, bleeding, and infection. The patient understood these risks and agreed to the procedure as planned. Informed consent was obtained. DESCRIPTION OF THE PROCEDURE: The patient was brought into the electrophysiology lab in a fasting state. She was connected to continuous secured entrance monitor. Timeout was performed to ensure patient identity and procedure correctly. The patient was prepped and draped over the left infraclavicular space in normal surgical standard fashion. Monitored conscious sedation was given throughout the procedure for patient's comfort level. [place] precautions were maintained throughout the procedure. She received prophylactic antibiotics prior to incision. 10 mL of 1% lidocaine, bupivacaine mixture were given in the left deltopectoral groove. Incision was made in left deltopectoral groove and blunt dissection performed down to identify cephalic vein; however, none could be identified, so peripheral venogram was performed and then the axillary venous access was obtained through a needlestick without any problems. Guidewire was inserted without any resistance. An 8[place]izen [place] sheath was inserted over the guidewire without any resistance. Dilator was removed and a second guidewire was inserted through the 8-[place]izen [place] sheath to allow for retained venous access. Sheath was removed, flushed, dilator reinserted over it and then it was reinserted over one of the guidewires. Guidewire and dilator removed and the right ventricular lead was advanced into right ventricle and positioned in intraventricular apex under fluoroscopic guidance. There was adequate pacing and sensing thresholds and no diaphragmatic stimulation with high output pacing. The 8-[place]izen [place] sheath was peeled away and lead was fixated to pectoralis muscle using 0 silk suture. A second 8[place] sheath was inserted over the retained guidewire without any resistance. Guidewire and dilator removed. The right atrial lead was advanced into right atrium and positioned interatrial appendage under fluoroscopic guidance. There was adequate pacing and sensing thresholds and no diaphragmatic stimulation with high output pacing. The 8[place] sheath was peeled away and lead was fixated to pectoralis muscle using 0 silk suture. A pacemaker pocket was created using blunt dissection over the pectoralis muscle within the pectoral fascia. The pocket was flushed with copious amounts of bacitracin saline wash and inspected for hemostasis. Pulse generator was then attached to the leads making sure that the pins were in appropriate position, passed set screw and set screws were all tightened. Pulse generator was then placed in the pocket, making sure that the leads were lying flat beneath the device. A stay stitch using 0 silk suture was used to secure the pectoralis muscle. The incision was then closed in 3-layer fashion with 2-0 Vicryl interrupted suture followed by 3-0 Vicryl interrupted suture followed by 4-0 Monocryl running stitch and Dermabond was applied followed by Telfa and micropore dressing. EQUIPMENT: 1. Pulse generator is a Medtronic Rosetta XTD MRI SureScan [id number], serial number [id number]. 2. Right atrial lead Medtronic 5076-52 cm, serial number [id number]. 3. Right ventricular lead, Medtronic 5076-58 cm, serial number [id number]. INTRAOPERATIVE TESTIN. Right atrial lead: P-wave 5.9 millivolts, impedance 651 ohms, threshold 0.9 volts at 0.5 milliseconds. 2. Right ventricular lead: R waves 14.3 millivolts, impedance 1085 ohms, threshold 1.2 volts at 0.5 milliseconds. FINAL PARAMETERS THROUGH THE DEVICE: 1. Right atrial lead: P-wave 3.9 millivolts, impedance 456 ohms, threshold 0.5 volts at 0.4 milliseconds. 2. Right ventricular lead: R waves 16.5 millivolts, impedance 874 ohms, threshold 0.75 volts at 0.4 milliseconds. FINAL PARAMETERS: MVP-R 60/140, right atrial and right ventricular amplitude 3.5 volts, pulse width 0.4 milliseconds, sensitivity 0.3 millivolts. IMPRESSION: Successful implantation of a dual chamber rate responsive permanent pacemaker along with peripheral venogram under fluoroscopic guidance secondary to tachybrady syndrome, intermittent complete heart block and sinus arrest with syncope. PLAN: Monitor patient overnight, 12-lead ECG, chest x-ray. She cannot lift the left elbow or left shoulder for 1 month. She cannot lift more than 10 pounds with the left arm for 2 weeks. She is to keep the dressing on and dry until her wound check next week and I will see her back in our office in 1 week time as scheduled. I attest to the content of the Intraoperative Record and any orders documented therein. Any exceptions are noted below. OLIVER
== END 2019-10-08 13:52 | disposition home or self-care (01) | DRG 243 ==
LOC: ED 16:45 → 2E 17:58 → SUATTDRO 17:58 → 2E 19:17